=== PATIENT | male | born 1950 | race Caucasian/White ===

== ENCOUNTER 2020-09-10 10:12 | Inpatient (IN) ==
[2020-09-10 11:22] LABS: Immature Granulocytes % 0.2 % (0-4)
[2020-09-10 11:24] LABS: Basophils % 0.5 %; Eosinophils # 0.3 K/mcL (0.0-0.6); Hematocrit 31.4 % (37.5-50.1); Hemoglobin 10.5 g/dL (12.9-16.9); Lymphocytes # 1.5 K/mcL (0.6-4.6); Mean Corpuscular HGB Conc 33.4 g/dL (31.6-35.5); Mean Corpuscular Hemoglobin 31.3 pg (28.0-33.3); Mean Corpuscular Volume 93.7 fL (83.0-100.0); Mean Platelet Volume 10.3 fL (9.4-12.4); Monocytes # 0.6 K/mcL (0.0-1.3); Neutrophils # 3.3 K/mcL (1.6-8.9); Red Blood Count 3.35 M/mcL (4.19-5.50); Red Cell Distribution Width 14.1 % (11.5-14.5); Segmented Neutrophils % 58.3 %; White Blood Count 5.6 K/mcL (4.3-11.1)
[2020-09-10 11:31] LABS: Platelet Count 70 K/mcL (140-400)
[2020-09-10 11:43] LABS: Troponin I < 0.03 ng/mL (< 0.04)
[2020-09-10 12:02] LABS: Alanine Aminotransferase 17 Units/L (7-52); Albumin 3.2 g/dL (3.5-5.7); Albumin/Globulin Ratio 1.2 (1.1-2.2); Alkaline Phosphatase 57 Units/L (34-104); Aspartate Amino Transferase 28 Units/L (13-39); BUN/Creatinine Ratio 16 (6-26); Bilirubin,Total 2.9 mg/dL (0.3-1.0); Blood Urea Nitrogen 18 mg/dL (8-23); Calcium 8.6 mg/dL (8.6-10.3); Carbon Dioxide 26 mEq/L (23-29); Chloride 108 mEq/L (98-107); Globulin 2.6 g/dL (2.4-3.5); Glucose 83 mg/dL (70-105); Osmolality,Calculated 289 (280-300); Potassium 4.5 mEq/L (3.5-5.1); Sodium 139 mEq/L (136-145); Total Protein 5.8 g/dL (6.4-8.9); eGFR For African Americans > 60 (> 60); eGFR For Non-African Americans > 60 (> 60)
[2020-09-10 12:39] LABS: Bacteria,Urine Few per hpf (None-Few); Bilirubin,Urine Negative (Negative); Blood,Urine Negative (Negative); Clarity,Urine Turbid (Clear); Color,Urine Light-Orange (Yellow); Glucose,Urine (UA) Normal (Normal); Hyaline Casts,Urine Few per lpf (None Seen); Ketones,Urine Negative (Negative); Leukocyte Esterase,Urine Negative (Negative); Mucus,Urine Moderate per lpf (None-Few); Nitrite,Urine Negative (Negative); Protein,Urine 50 mg/dL (Neg-Trace); RBC,Urine 0-3 per hpf (0-3); Specific Gravity,Urine 1.023 (1.010-1.025); WBC,Urine 0-3 per hpf (0-3)
[2020-09-10] MEDS ORDERED: Furosemide 40 MG/4 ML VIAL IVP ONE (14:09)
[2020-09-10] MEDS ORDERED: Acetaminophen 325 MG TABLET PO PRN (15:31)
[2020-09-10] MEDS ORDERED: Naloxone 0.4 MG/ML INJ IVP PRN (15:31)
[2020-09-10] MEDS ORDERED: Perflutren Lipid Microsphere 1.3 ML in 0.9 % Sodium Chloride 8.7 ML IVP PRN (15:35)
[2020-09-11] MEDS: *HR* Enoxaparin 40 MG/0.4 ML SYRINGE SQ SCH (05:35)
[2020-09-11 06:03] LABS: Immature Granulocytes % 0.2 % (0-4); Red Cell Distribution Width 13.9 % (11.5-14.5)
[2020-09-11 06:05] LABS: Basophils % 0.8 %; Eosinophils # 0.3 K/mcL (0.0-0.6); Eosinophils % 6.4 %; Hemoglobin 10.1 g/dL (12.9-16.9); Immature Platelets 2.6 % (1.1-6.1); Lymphocytes # 1.5 K/mcL (0.6-4.6); Lymphocytes % 28.8 %; Mean Corpuscular HGB Conc 33.7 g/dL (31.6-35.5); Mean Corpuscular Hemoglobin 31.8 pg (28.0-33.3); Mean Corpuscular Volume 94.3 fL (83.0-100.0); Mean Platelet Volume 10.2 fL (9.4-12.4); Monocytes # 0.6 K/mcL (0.0-1.3); Monocytes % 12.1 %; Red Blood Count 3.18 M/mcL (4.19-5.50); Segmented Neutrophils % 51.7 %; White Blood Count 5.1 K/mcL (4.3-11.1)
[2020-09-11 06:07] LABS: Neutrophils # 2.6 K/mcL (1.6-8.9); Platelet Count 67 K/mcL (140-400)
[2020-09-11 06:27] LABS: BUN/Creatinine Ratio 18 (6-26); Blood Urea Nitrogen 18 mg/dL (8-23); Calcium 8.5 mg/dL (8.6-10.3); Carbon Dioxide 25 mEq/L (23-29); Chloride 108 mEq/L (98-107); Glucose 89 mg/dL (70-105); Osmolality,Calculated 287 (280-300); Sodium 138 mEq/L (136-145); eGFR For African Americans > 60 (> 60); eGFR For Non-African Americans > 60 (> 60)
[2020-09-11] MEDS: Furosemide 40 MG/4 ML VIAL IVP SCH ×2 (08:36→17:41)
[2020-09-11] MEDS ORDERED: *HR* Dextrose 50 % in Water (Vial) 50 ML VIAL IVP PRN (13:39)
[2020-09-11] MEDS ORDERED: Dextrose Gel 15 GM/37.5 ML TUBE PO PRN ×2 (13:39)
[2020-09-11] MEDS ORDERED: D5% in Water 1,000 ML IVC PRN (13:39)
[2020-09-11] MEDS: Insulin LISPRO 300 UNITS/3 ML VIAL SUBQ SCH (17:41)
[2020-09-11] MEDS ORDERED: carvediloL 25 MG TABLET PO SCH (18:00)
[2020-09-11] MEDS ORDERED: Insulin LISPRO 300 UNITS/3 ML VIAL SUBQ SCH (21:00)
[2020-09-12] MEDS: *HR* Enoxaparin 40 MG/0.4 ML SYRINGE SQ SCH (06:06)
[2020-09-12] MEDS ORDERED: Furosemide 40 MG TABLET PO SCH (08:00)
[2020-09-12] MEDS ORDERED: carvediloL 6.25 MG TABLET PO SCH (09:00)
[2020-09-12] MEDS ORDERED: Ergocalciferol (VIT D2) 50,000 UNIT (1.25MG) CAP PO SCH (09:00)
[2020-09-12] MEDS ORDERED: NON-FORMULARY MEDICATION 1 EACH EACH (Ezetimibe 10 MG Tablet) PO SCH (09:00)
[2020-09-12] MEDS ORDERED: Folic Acid 1 MG TABLET PO SCH (09:00)
[2020-09-12] MEDS ORDERED: Aspirin Enteric Coated 81 MG Tablet PO SCH (09:00)
[2020-09-12] MEDS ORDERED: amLODIPine 5 MG TABLET PO SCH (09:00)
[2020-09-12] MEDS ORDERED: Furosemide 40 MG/4 ML VIAL IVP SCH (09:00)
[2020-09-12] MEDS: Insulin LISPRO 300 UNITS/3 ML VIAL SUBQ SCH (09:43)
[2020-09-12 11:25] VITALS: BP 120/71
== END 2020-09-12 12:18 | disposition home or self-care (01) | DRG 189 ==
LOC: 3ANU 10:12 → EMEROOARM 10:12 → SUATTDRO 15:50 → 3ANU 17:08
PROVIDERS: ADMIT Internal Medicine; ATTEND Student in an Organized Health Care Education/Training Program

== ENCOUNTER 2021-10-05 12:30 | Inpatient (IN) ==
[2021-10-05] MEDS ORDERED: Iopamidol - 370 500 ML MLS IVP ONE (13:13)
[2021-10-05] MEDS ORDERED: 0.9 % Sodium Chloride 1,000 ML IV ONE (13:17)
[2021-10-05] MEDS ORDERED: Ondansetron 4 MG/2 ML VIAL IVP PRN ×2 (13:17→16:51)
[2021-10-05 14:02] LABS: Basophils % 0.4 %; Eosinophils # 0.1 K/mcL (0.0-0.6); Eosinophils % 2.7 %; Hemoglobin 11.3 g/dL (12.9-16.9); Immature Granulocytes % 0.2 % (0-4); Lymphocytes # 1.2 K/mcL (0.6-4.6); Lymphocytes % 24.2 %; Mean Corpuscular HGB Conc 35.3 g/dL (31.6-35.5); Mean Corpuscular Hemoglobin 32.5 pg (28.0-33.3); Mean Platelet Volume 11.6 fL (9.4-12.4); Monocytes # 0.4 K/mcL (0.0-1.3); Monocytes % 8.1 %; Neutrophils # 3.1 K/mcL (1.6-8.9); Red Blood Count 3.48 M/mcL (4.19-5.50); Red Cell Distribution Width 14.2 % (11.5-14.5); Segmented Neutrophils % 64.4 %; White Blood Count 4.8 K/mcL (4.3-11.1)
[2021-10-05 14:04] LABS: Platelet Count 77 K/mcL (140-400); Platelet Estimate Decreased (Normal)
[2021-10-05 14:25] LABS: Alanine Aminotransferase 37 Units/L (7-52); Albumin 3.3 g/dL (3.5-5.7); Alkaline Phosphatase 106 Units/L (34-104); Aspartate Amino Transferase 59 Units/L (13-39); BUN/Creatinine Ratio 24 (6-26); Bilirubin,Direct 1.1 mg/dL (0.0-0.2); Bilirubin,Indirect 2.7 mg/dL (0.0-1.0); Bilirubin,Total 3.8 mg/dL (0.3-1.0); Blood Urea Nitrogen 44 mg/dL (8-23); Calcium 9.3 mg/dL (8.6-10.3); Carbon Dioxide 26 mEq/L (23-29); Chloride 98 mEq/L (98-107); Creatine Kinase 216 Units/L (30-223); Ethanol < 10 mg/dL (Less than 10); Globulin 3.3 g/dL (2.4-3.5); Glucose 250 mg/dL (70-105); Osmolality,Calculated 302 (280-300); Potassium 5.1 mEq/L (3.5-5.1); Sodium 136 mEq/L (136-145); Thyroid Stimulating Hormone 3.093 mcIU/mL (0.340-5.600); Total Protein 6.6 g/dL (6.4-8.9); Troponin I < 0.03 ng/mL (< 0.04); eGFR For African Americans 44 (> 60); eGFR For Non-African Americans 37 (> 60)
[2021-10-05 14:29] LABS: VBG HCO3 26 mEq/L (21-27); VBG PCO2 44 mmHg (41-51); VBG PH 7.37 pH Units (7.32-7.42); VBG PO2 85 mmHg (25-50)
[2021-10-05 14:41] LABS: INR 1.7; Prothrombin Time 18.5 Seconds (9.4-12.1)
[2021-10-05 14:44] LABS: Activated Partial Thrombo Time 31.4 Seconds (26.0-36.0)
[2021-10-05 15:17] LABS: Bacteria,Urine Few per hpf (None-Few); Bilirubin,Urine Negative (Negative); Blood,Urine Trace (Negative); Clarity,Urine Clear (Clear); Color,Urine Light-Yellow (Yellow); Glucose,Urine (UA) Normal (Normal); Hyaline Casts,Urine Many per lpf (None Seen); Ketones,Urine Negative (Negative); Leukocyte Esterase,Urine Negative (Negative); Mucus,Urine Few per lpf (None-Few); Nitrite,Urine Negative (Negative); PH,Urine 5.5 pH Units (5.0-8.0); Protein,Urine Negative (Neg-Trace); Specific Gravity,Urine 1.011 (1.010-1.025); Squamous Epithelial Cell,Urine Few per hpf (None-Few); Urobilinogen,Urine Normal (Normal); WBC,Urine 0-3 per hpf (0-3)
[2021-10-05 15:26] LABS: Amphetamine Screen,Urine Negative ng/mL (Cutoff=1000); Barbiturate Screen,Urine Negative ng/mL (Cutoff=200); Benzodiazepines Screen,Urine Negative ng/mL (Cutoff=200); Cannabinoid Screen,Urine Negative ng/mL (Cutoff = 50); Cocaine Screen,Urine Negative ng/mL (Cutoff= 300); Opiate Screen,Urine Negative ng/mL (Cutoff=300); Phencyclidine Screen,Urine Negative ng/mL (Cutoff=25)
[2021-10-05] MEDS ORDERED: Lactulose Oral Soln 20 GM/30 ML UDC PO ONE (15:49)
[2021-10-05 15:56] LABS: Influenza A PCR Negative (Negative); Influenza B PCR Negative (Negative); Resp. Syncytial Virus PCR Negative (Negative)
[2021-10-05 15:57] LABS: SARS-CoV-2 by PCR (In House) Negative (Negative)
[2021-10-05] MEDS ORDERED: Mag Hydrox/Al Hydrox/Simeth 30 ML UDC PO PRN (16:51)
[2021-10-05] MEDS ORDERED: Melatonin 3 MG TABLET PO PRN (16:51)
[2021-10-05] MEDS ORDERED: MOM Conc 10 ML UD.LIQ PO PRN (16:51)
[2021-10-05] MEDS ORDERED: Naloxone 0.4 MG/ML INJ IVP PRN (16:51)
[2021-10-05] MEDS ORDERED: D5% in Water 1,000 ML IVC PRN (17:00)
[2021-10-05] MEDS ORDERED: *HR* Dextrose 50 % in Water (Syg) 50 ML SYRINGE IVP PRN (17:00)
[2021-10-05] MEDS ORDERED: Dextrose Gel 15 GM/37.5 ML TUBE PO PRN ×2 (17:00)
[2021-10-05 17:22] LABS: Estimated Average Glucose 180 mg/dl; Hemoglobin A1C 7.9 %
[2021-10-05] MEDS: carvediloL 25 MG TABLET PO SCH (18:33)
[2021-10-05] MEDS: 0.9 % Sodium Chloride 1,000 ML IVC SCH (18:50)
[2021-10-05] MEDS: Lactulose Oral Soln 20 GM/30 ML UDC PO SCH (20:33)
[2021-10-05] MEDS: Insulin LISPRO 300 UNITS/3 ML VIAL SUBQ SCH (20:43)
[2021-10-06 02:35] LABS: Basophils % 0.3 %; Hematocrit 27.7 % (37.5-50.1); Hemoglobin 9.7 g/dL (12.9-16.9); Immature Granulocytes % 0.3 % (0-4); Mean Platelet Volume 10.5 fL (9.4-12.4)
[2021-10-06 02:37] LABS: Eosinophils # 0.1 K/mcL (0.0-0.6); Eosinophils % 4.1 %; Lymphocytes # 1.1 K/mcL (0.6-4.6); Lymphocytes % 31.4 %; Mean Corpuscular Hemoglobin 32.4 pg (28.0-33.3); Mean Corpuscular Volume 92.6 fL (83.0-100.0); Monocytes # 0.4 K/mcL (0.0-1.3); Monocytes % 10.8 %; Neutrophils # 1.8 K/mcL (1.6-8.9); Red Blood Count 2.99 M/mcL (4.19-5.50); Red Cell Distribution Width 14.1 % (11.5-14.5); Segmented Neutrophils % 53.1 %; White Blood Count 3.4 K/mcL (4.3-11.1)
[2021-10-06 02:40] LABS: Platelet Count 63 K/mcL (140-400)
[2021-10-06 02:55] LABS: Albumin 2.7 g/dL (3.5-5.7); Bilirubin,Total 3.2 mg/dL (0.3-1.0); Calcium 8.1 mg/dL (8.6-10.3); Globulin 2.6 g/dL (2.4-3.5); Potassium 4.1 mEq/L (3.5-5.1); Total Protein 5.3 g/dL (6.4-8.9)
[2021-10-06] MEDS: *HR* Enoxaparin 40 MG/0.4 ML SYRINGE SQ SCH (06:08)
[2021-10-06] MEDS: Insulin LISPRO 300 UNITS/3 ML VIAL SUBQ SCH ×4 (07:42→21:16)
[2021-10-06] MEDS: Lactulose Oral Soln 20 GM/30 ML UDC PO SCH ×2 (07:42→21:15)
[2021-10-06] MEDS: carvediloL 6.25 MG TABLET PO SCH (07:42)
[2021-10-06] MEDS: Aspirin Enteric Coated 81 MG Tablet PO SCH (07:42)
[2021-10-06] MEDS: 0.9 % Sodium Chloride 1,000 ML IVC SCH (07:48)
[2021-10-06] MEDS: rifAMPin 150 MG CAPSULE PO SCH ×2 (08:45→17:27)
[2021-10-06] MEDS ORDERED: Gadolinium Contrast Agent (WT Based) IV PRN (16:27)
[2021-10-06 16:37] LABS: % Iron Saturation 34 % (20-55); Iron 110 mcg/dL (65-175); Transferrin 229 mg/dL (203-362)
[2021-10-06 16:58] LABS: Ferritin 83 ng/mL (20-250)
[2021-10-06] MEDS: carvediloL 25 MG TABLET PO SCH (17:27)
[2021-10-06 17:38] LABS: Folate > 22.3 ng/mL (3.0-16.0); Vitamin B12 1394 pg/mL (250-1100)
[2021-10-06] MEDS: Insulin DETEMIR 100 UNIT/ML X5UNITS SUBQ SCH (21:16)
[2021-10-07 01:57] LABS: Hematocrit 27.3 % (37.5-50.1)
[2021-10-07 01:59] LABS: Hemoglobin 9.3 g/dL (12.9-16.9); Mean Corpuscular HGB Conc 34.1 g/dL (31.6-35.5); Mean Corpuscular Hemoglobin 31.7 pg (28.0-33.3); Mean Corpuscular Volume 93.2 fL (83.0-100.0); Mean Platelet Volume 10.3 fL (9.4-12.4); Red Blood Count 2.93 M/mcL (4.19-5.50); White Blood Count 3.4 K/mcL (4.3-11.1)
[2021-10-07 02:11] LABS: Alanine Aminotransferase 32 Units/L (7-52); Albumin 2.7 g/dL (3.5-5.7); Albumin/Globulin Ratio 1.1 (1.1-2.2); Alkaline Phosphatase 80 Units/L (34-104); Aspartate Amino Transferase 46 Units/L (13-39); BUN/Creatinine Ratio 24 (6-26); Bilirubin,Direct 1.7 mg/dL (0.0-0.2); Bilirubin,Indirect 2.9 mg/dL (0.0-1.0); Bilirubin,Total 4.6 mg/dL (0.3-1.0); Blood Urea Nitrogen 32 mg/dL (8-23); Calcium 7.8 mg/dL (8.6-10.3); Carbon Dioxide 26 mEq/L (23-29); Chloride 104 mEq/L (98-107); Globulin 2.5 g/dL (2.4-3.5); Glucose 193 mg/dL (70-105); Osmolality,Calculated 296 (280-300); Potassium 4.1 mEq/L (3.5-5.1); Sodium 137 mEq/L (136-145); Total Protein 5.2 g/dL (6.4-8.9); eGFR For African Americans > 60 (> 60); eGFR For Non-African Americans 53 (> 60)
[2021-10-07] MEDS: *HR* Enoxaparin 40 MG/0.4 ML SYRINGE SQ SCH (05:31)
[2021-10-07] MEDS: Aspirin Enteric Coated 81 MG Tablet PO SCH (07:36)
[2021-10-07] MEDS: Insulin LISPRO 300 UNITS/3 ML VIAL SUBQ SCH ×4 (07:36→21:26)
[2021-10-07] MEDS: rifAMPin 150 MG CAPSULE PO SCH (07:37)
[2021-10-07] MEDS: carvediloL 6.25 MG TABLET PO SCH (07:37)
[2021-10-07] MEDS ORDERED: *HR* LORazepam 2 MG/ML VIAL IVP ONE ×2 (12:29→18:45)
[2021-10-07] MEDS ORDERED: Lidocaine -MPF 2% 2 ML VIAL ONE (13:09)
[2021-10-07] MEDS ORDERED: *HR* Propofol 200 MG/20 ML VIAL IVP ONE (13:10)
[2021-10-07] MEDS: Lactulose Oral Soln 20 GM/30 ML UDC PO SCH ×2 (17:43→21:25)
[2021-10-07] MEDS: carvediloL 25 MG TABLET PO SCH (17:58)
[2021-10-07] MEDS: Insulin DETEMIR 100 UNIT/ML X5UNITS SUBQ SCH (21:26)
[2021-10-08 01:07] LABS: Mean Corpuscular HGB Conc 34.1 g/dL (31.6-35.5); Mean Corpuscular Hemoglobin 32.6 pg (28.0-33.3)
[2021-10-08 01:08] LABS: Hematocrit 28.7 % (37.5-50.1); Hemoglobin 9.8 g/dL (12.9-16.9); Immature Platelets 2.9 % (1.1-6.1); Mean Corpuscular Volume 95.3 fL (83.0-100.0); Mean Platelet Volume 10.9 fL (9.4-12.4); Red Blood Count 3.01 M/mcL (4.19-5.50); White Blood Count 3.7 K/mcL (4.3-11.1)
[2021-10-08 01:26] LABS: Alanine Aminotransferase 31 Units/L (7-52); Albumin 2.7 g/dL (3.5-5.7); Alkaline Phosphatase 89 Units/L (34-104); Aspartate Amino Transferase 48 Units/L (13-39); BUN/Creatinine Ratio 19 (6-26); Bilirubin,Direct 2.1 mg/dL (0.0-0.2); Bilirubin,Indirect 3.2 mg/dL (0.0-1.0); Bilirubin,Total 5.3 mg/dL (0.3-1.0); Blood Urea Nitrogen 26 mg/dL (8-23); Calcium 7.9 mg/dL (8.6-10.3); Carbon Dioxide 23 mEq/L (23-29); Chloride 106 mEq/L (98-107); Globulin 2.6 g/dL (2.4-3.5); Glucose 264 mg/dL (70-105); Osmolality,Calculated 294 (280-300); Potassium 4.2 mEq/L (3.5-5.1); Sodium 135 mEq/L (136-145); Total Protein 5.3 g/dL (6.4-8.9); eGFR For African Americans > 60 (> 60); eGFR For Non-African Americans 51 (> 60)
[2021-10-08] MEDS: Aspirin Enteric Coated 81 MG Tablet PO SCH (07:37)
[2021-10-08] MEDS: carvediloL 6.25 MG TABLET PO SCH (07:37)
[2021-10-08] MEDS: Insulin LISPRO 300 UNITS/3 ML VIAL SUBQ SCH ×3 (07:38→16:06)
[2021-10-08] MEDS: Lactulose Oral Soln 20 GM/30 ML UDC PO SCH ×2 (07:38→21:41)
[2021-10-08] MEDS ORDERED: Iopamidol - 370 500 ML MLS IVP ONE (10:43)
[2021-10-08] MEDS: 0.9 % Sodium Chloride 1,000 ML IVC SCH ×2 (14:40→23:27)
[2021-10-08] MEDS: carvediloL 25 MG TABLET PO SCH (17:53)
[2021-10-08] MEDS ORDERED: Sucralfate 1 GM TABLET PO SCH (20:00)
[2021-10-08] MEDS ORDERED: Insulin DETEMIR 100 UNIT/ML X5UNITS SUBQ SCH (21:00)
[2021-10-08] MEDS ORDERED: Insulin LISPRO 300 UNITS/3 ML VIAL SUBQ SCH (21:00)
[2021-10-09 06:06] LABS: Mean Corpuscular Volume 95.8 fL (83.0-100.0)
[2021-10-09 06:08] LABS: Hematocrit 27.7 % (37.5-50.1); Hemoglobin 9.4 g/dL (12.9-16.9); Immature Platelets 3.5 % (1.1-6.1); Mean Corpuscular HGB Conc 33.9 g/dL (31.6-35.5); Mean Corpuscular Hemoglobin 32.5 pg (28.0-33.3); Mean Platelet Volume 10.7 fL (9.4-12.4); Red Blood Count 2.89 M/mcL (4.19-5.50); Red Cell Distribution Width 14.1 % (11.5-14.5); White Blood Count 4.7 K/mcL (4.3-11.1)
[2021-10-09 06:25] LABS: Alanine Aminotransferase 39 Units/L (7-52); Albumin 2.8 g/dL (3.5-5.7); Albumin/Globulin Ratio 1.1 (1.1-2.2); Alkaline Phosphatase 98 Units/L (34-104); Aspartate Amino Transferase 67 Units/L (13-39); BUN/Creatinine Ratio 17 (6-26); Bilirubin,Direct 1.3 mg/dL (0.0-0.2); Bilirubin,Indirect 2.1 mg/dL (0.0-1.0); Bilirubin,Total 3.4 mg/dL (0.3-1.0); Blood Urea Nitrogen 22 mg/dL (8-23); Calcium 7.7 mg/dL (8.6-10.3); Carbon Dioxide 24 mEq/L (23-29); Chloride 106 mEq/L (98-107); Globulin 2.5 g/dL (2.4-3.5); Glucose 267 mg/dL (70-105); Osmolality,Calculated 293 (280-300); Potassium 4.3 mEq/L (3.5-5.1); Sodium 135 mEq/L (136-145); Total Protein 5.3 g/dL (6.4-8.9); eGFR For African Americans > 60 (> 60); eGFR For Non-African Americans 55 (> 60)
[2021-10-09 06:44] VITALS: BP 123/76; PULSE 83; TEMP 98; O2SAT 95
[2021-10-09] MEDS ORDERED: Insulin LISPRO 300 UNITS/3 ML VIAL SUBQ SCH (07:45)
[2021-10-09] MEDS ORDERED: Insulin DETEMIR 100 UNIT/ML X5UNITS SUBQ SCH (09:00)
[2021-10-09] MEDS: carvediloL 6.25 MG TABLET PO SCH (09:08)
[2021-10-09] MEDS: Aspirin Enteric Coated 81 MG Tablet PO SCH (09:10)
[2021-10-09] MEDS: Lactulose Oral Soln 20 GM/30 ML UDC PO SCH (09:10)
[2021-10-09] MEDS ORDERED: Iron Sucrose Complex 200 MG in 0.9 % Sodium Chloride 100 ML IVPB ONE (11:22)
== END 2021-10-09 12:41 | disposition home or self-care (01) | DRG 441 ==
LOC: EMEROOARM 12:30 → 2ANU 12:30 → SUATTDRO 10-07 14:34
PROVIDERS: ADMIT Hospitalist; ATTEND Pharmacist

== ENCOUNTER 2021-11-16 18:08 | Observation (INO) ==
[2021-11-16] MEDS ORDERED: 0.9 % Sodium Chloride 1,000 ML IVC ONE (19:25)
[2021-11-16 20:03] LABS: Hemoglobin 9.3 g/dL (12.9-16.9)
[2021-11-16 20:05] LABS: Basophils % 0.4 %; Eosinophils # 0.2 K/mcL (0.0-0.6); Eosinophils % 3.7 %; Hematocrit 26.6 % (37.5-50.1); Immature Granulocytes % 0.4 % (0-4); Immature Platelets 2.7 % (1.1-6.1); Lymphocytes % 22.1 %; Mean Corpuscular Hemoglobin 32.4 pg (28.0-33.3); Mean Corpuscular Volume 92.7 fL (83.0-100.0); Mean Platelet Volume 10.3 fL (9.4-12.4); Monocytes # 0.4 K/mcL (0.0-1.3); Monocytes % 8.3 %; Red Blood Count 2.87 M/mcL (4.19-5.50); Red Cell Distribution Width 14.3 % (11.5-14.5); Segmented Neutrophils % 65.1 %; White Blood Count 4.6 K/mcL (4.3-11.1)
[2021-11-16 20:13] LABS: Platelet Count 66 K/mcL (140-400)
[2021-11-16 20:18] LABS: INR 1.2; Prothrombin Time 13.3 Seconds (9.4-12.1)
[2021-11-16 20:20] LABS: Activated Partial Thrombo Time 36.3 Seconds (26.0-36.0)
[2021-11-16 20:25] LABS: Alanine Aminotransferase 46 Units/L (7-52); Albumin 3.4 g/dL (3.5-5.7); Alkaline Phosphatase 127 Units/L (34-104); Aspartate Amino Transferase 76 Units/L (13-39); BUN/Creatinine Ratio 22 (6-26); Bilirubin,Direct 1.9 mg/dL (0.0-0.2); Bilirubin,Indirect 3.4 mg/dL (0.0-1.0); Bilirubin,Total 5.3 mg/dL (0.3-1.0); Blood Urea Nitrogen 38 mg/dL (8-23); Calcium 9.4 mg/dL (8.6-10.3); Carbon Dioxide 27 mEq/L (23-29); Chloride 100 mEq/L (98-107); Globulin 3.3 g/dL (2.4-3.5); Glucose 198 mg/dL (70-105); Osmolality,Calculated 295 (280-300); Potassium 3.9 mEq/L (3.5-5.1); Sodium 135 mEq/L (136-145); Total Protein 6.7 g/dL (6.4-8.9); Troponin I < 0.03 ng/mL (< 0.04); eGFR For African Americans 48 (> 60); eGFR For Non-African Americans 39 (> 60)
[2021-11-16 21:03] LABS: Bilirubin,Urine Negative (Negative); Blood,Urine Negative (Negative); Clarity,Urine Clear (Clear); Color,Urine Yellow (Yellow); Glucose,Urine (UA) 30 mg/dL (Normal); Hyaline Casts,Urine Few per lpf (None Seen); Ketones,Urine Negative (Negative); Leukocyte Esterase,Urine Negative (Negative); Mucus,Urine Few per lpf (None-Few); Nitrite,Urine Negative (Negative); PH,Urine 5.5 pH Units (5.0-8.0); Protein,Urine Negative (Neg-Trace); RBC,Urine 0-3 per hpf (0-3); Specific Gravity,Urine 1.012 (1.010-1.025); Squamous Epithelial Cell,Urine Few per hpf (None-Few); Urobilinogen,Urine Normal (Normal); WBC,Urine 0-3 per hpf (0-3)
[2021-11-16 21:12] LABS: Amphetamine Screen,Urine Negative ng/mL (Cutoff=1000); Barbiturate Screen,Urine Negative ng/mL (Cutoff=200); Benzodiazepines Screen,Urine Negative ng/mL (Cutoff=200); Cannabinoid Screen,Urine Negative ng/mL (Cutoff = 50); Cocaine Screen,Urine Negative ng/mL (Cutoff= 300); Opiate Screen,Urine Negative ng/mL (Cutoff=300); Phencyclidine Screen,Urine Negative ng/mL (Cutoff=25)
[2021-11-16 21:13] LABS: ABG Base Excess 2 mEq/L (-2 to 3); ABG HCO3 26 mEq/L (21-27); ABG Oxygen Saturation 98 % (95-98); ABG PCO2 35 mmHg (35-45); ABG PH 7.47 pH Units (7.32-7.45); ABG PO2 91 mmHg (85-104); ABG TCO2 27 mEq/L (20-26)
[2021-11-16] MEDS ORDERED: Ondansetron 4 MG/2 ML VIAL IVP ONE ×2 (21:45→22:59)
[2021-11-17] MEDS ORDERED: Ondansetron 4 MG/2 ML VIAL IVP ONE (00:33)
[2021-11-17] MEDS ORDERED: Lactulose Oral Soln 20 GM/30 ML UDC PO ONE (01:32)
[2021-11-17] MEDS ORDERED: Hyoscyamine 0.5 MG/ML MLS IVP ONE (01:35)
[2021-11-17] MEDS ORDERED: *HR* Promethazine 25 MG/ML VIAL IM PRN (03:30)
[2021-11-17] MEDS ORDERED: Naloxone 0.4 MG/ML INJ IVP PRN (03:30)
[2021-11-17] MEDS ORDERED: Ondansetron 4 MG/2 ML VIAL IVP PRN (03:30)
[2021-11-17] MEDS ORDERED: 0.9 % Sodium Chloride 1,000 ML IVC SCH ×2 (03:30→08:45)
[2021-11-17] MEDS ORDERED: Melatonin 3 MG TABLET PO PRN (03:30)
[2021-11-17 06:07] LABS: Hemoglobin 8.4 g/dL (12.9-16.9); Immature Granulocytes % 0.2 % (0-4)
[2021-11-17 06:09] LABS: Basophils % 0.5 %; Eosinophils # 0.2 K/mcL (0.0-0.6); Eosinophils % 4.5 %; Hematocrit 23.6 % (37.5-50.1); Immature Platelets 2.5 % (1.1-6.1); Lymphocytes # 1.3 K/mcL (0.6-4.6); Lymphocytes % 29.1 %; Mean Corpuscular HGB Conc 35.6 g/dL (31.6-35.5); Mean Corpuscular Hemoglobin 33.1 pg (28.0-33.3); Mean Corpuscular Volume 92.9 fL (83.0-100.0); Monocytes # 0.4 K/mcL (0.0-1.3); Monocytes % 8.6 %; Neutrophils # 2.5 K/mcL (1.6-8.9); Red Blood Count 2.54 M/mcL (4.19-5.50); Red Cell Distribution Width 14.4 % (11.5-14.5); Segmented Neutrophils % 57.1 %; White Blood Count 4.4 K/mcL (4.3-11.1)
[2021-11-17 06:11] LABS: Platelet Count 62 K/mcL (140-400)
[2021-11-17 06:20] LABS: INR 1.2; Prothrombin Time 13.6 Seconds (9.4-12.1)
[2021-11-17 06:28] LABS: Alanine Aminotransferase 38 Units/L (7-52); Albumin 2.9 g/dL (3.5-5.7); Alkaline Phosphatase 103 Units/L (34-104); Aspartate Amino Transferase 65 Units/L (13-39); BUN/Creatinine Ratio 22 (6-26); Bilirubin,Total 4.8 mg/dL (0.3-1.0); Blood Urea Nitrogen 35 mg/dL (8-23); Calcium 8.9 mg/dL (8.6-10.3); Carbon Dioxide 27 mEq/L (23-29); Chloride 103 mEq/L (98-107); Globulin 2.8 g/dL (2.4-3.5); Glucose 153 mg/dL (70-105); Magnesium 1.5 mg/dL (1.6-2.6); Osmolality,Calculated 297 (280-300); Phosphorous 3.9 mg/dL (2.7-4.5); Potassium 3.9 mEq/L (3.5-5.1); Sodium 138 mEq/L (136-145); Total Protein 5.7 g/dL (6.4-8.9); Troponin I < 0.03 ng/mL (< 0.04); eGFR For African Americans 53 (> 60); eGFR For Non-African Americans 44 (> 60)
[2021-11-17] MEDS ORDERED: *HR* Dextrose 50 % in Water (Syg) 50 ML SYRINGE IVP PRN (07:33)
[2021-11-17] MEDS ORDERED: D5% in Water 1,000 ML IVC PRN (07:33)
[2021-11-17] MEDS ORDERED: Dextrose Gel 15 GM/37.5 ML TUBE PO PRN ×2 (07:33)
[2021-11-17] MEDS ORDERED: 0.9 % Sodium Chloride 1,000 ML ONE (07:41)
[2021-11-17] MEDS: Lactulose Oral Soln 20 GM/30 ML UDC PO SCH ×2 (10:22→22:48)
[2021-11-17] MEDS: Folic Acid 1 MG TABLET PO SCH (10:22)
[2021-11-17] MEDS: Aspirin Enteric Coated 81 MG Tablet PO SCH (10:22)
[2021-11-17] MEDS: Insulin LISPRO 300 UNITS/3 ML VIAL SUBQ SCH ×2 (12:10→16:39)
[2021-11-17] MEDS ORDERED: carvediloL 25 MG TABLET PO SCH (21:00)
[2021-11-17 21:51] VITALS: O2SAT 98
[2021-11-17] MEDS: Sucralfate 1 GM TABLET PO SCH (22:48)
[2021-11-18 05:03] VITALS: BP 121/62; PULSE 75; TEMP 99.1
[2021-11-18] MEDS: Sucralfate 1 GM TABLET PO SCH (08:33)
[2021-11-18] MEDS: Folic Acid 1 MG TABLET PO SCH (08:33)
[2021-11-18] MEDS: Lactulose Oral Soln 20 GM/30 ML UDC PO SCH (08:35)
[2021-11-18] MEDS: Aspirin Enteric Coated 81 MG Tablet PO SCH (08:35)
[2021-11-18] MEDS: Insulin LISPRO 300 UNITS/3 ML VIAL SUBQ SCH ×2 (08:37→12:39)
[2021-11-18] MEDS ORDERED: carvediloL 6.25 MG TABLET PO SCH (09:00)
[2021-11-18] MEDS ORDERED: Ergocalciferol (VIT D2) 50,000 UNIT (1.25MG) CAP PO SCH (17:37)
== END 2021-11-18 12:50 | disposition home or self-care (01) ==
LOC: EMEROOARM 18:08 → 3NENU 18:08 → SUATTDRO 11-17 01:40 → 3NENU 11-17 02:46
PROVIDERS: ADMIT Family Medicine; ATTEND Internal Medicine